=== PATIENT | female | born 1995 | race Hispanic/Latino ===

== ENCOUNTER 2016-06-19 07:34 | Inpatient (IN) | payer MEDICAID ==
[~2016-06-19] VITALS: Ht 160 cm; Wt 81.6 kg
[2016-06-19] MEDS ORDERED: BUPIVACAINE 0.25% PF 10ML EPIDURAL ONE (07:45)
[2016-06-19] MEDS ORDERED: METOCLOPRAMIDE 10 MG/2 ML VIAL IV PUSH PRN (08:20)
[2016-06-19] MEDS ORDERED: FAMOTIDINE 20 MG TAB PO PRN (08:20)
[2016-06-19] MEDS ORDERED: TERBUTALINE 1 MG/ML VIAL SUBQ PRN (08:20)
[2016-06-19] MEDS ORDERED: FAMOTIDINE 20 MG INJ IV PRN (08:20)
[2016-06-19] MEDS ORDERED: CEFAZOLIN (LD/OB) 100 ML IV PRN (08:20)
[2016-06-19] MEDS ORDERED: ACETAMINOPHEN 325 MG TAB PO PRN (08:20)
[2016-06-19] MEDS ORDERED: LIDOCAINE 1% 30 ML PF INFILTRATE ONE (08:20)
[2016-06-19] MEDS ORDERED: PROMETHAZINE 25 MG/ML VIAL IV PRN (08:20)
[2016-06-19] MEDS ORDERED: OXYTOCIN 15 UNITS/250 ML NS 250 ML IV SCH ×2 (08:20→23:10)
[2016-06-19] MEDS ORDERED: ONDANSETRON 4 MG VIAL IV PUSH PRN (08:20)
[2016-06-19] MEDS ORDERED: LIDOCAINE 1% BUFFERED 1 ML SYR INTRADERM PRN (08:20)
[2016-06-19] MEDS ORDERED: ALU/MAG/SIM 30 ML UDC PO PRN (08:20)
[2016-06-19 08:54] VITALS: Ht 160 cm; Wt 81.6 kg
[2016-06-19] MEDS: LACT RINGERS 1,000 ML IV SCH ×2 (09:29→20:28)
[2016-06-19] MEDS ORDERED: ROPIV/FENT 0.2%-2MCG/ML 100 ML EPIDURAL ONE (18:22)
[2016-06-19] MEDS ORDERED: FENTANYL 100 MCG/2 ML AMP ONE (18:22)
[2016-06-19] MEDS ORDERED: LACT RINGERS 500 ML IV ONE (18:50)
[2016-06-19] MEDS ORDERED: ROPIV/FENT 0.2%-2MCG/ML 100 ML EPIDURAL SCH (18:50)
[2016-06-19] MEDS ORDERED: LACT RINGERS 500 ML IV PRN (18:50)
[2016-06-19] MEDS ORDERED: SODIUM CHLORIDE 0.9% 500 ML IV PRN (18:50)
[2016-06-19] MEDS ORDERED: FENTANYL 100 MCG/2 ML AMP EPIDURAL ONE (18:50)
[2016-06-19] MEDS ORDERED: **ONLY ANESTEHSIA MAY ORDER OPIATES WHILE ON EPIDURAL XX SCH (20:00)
[2016-06-19] MEDS: OXYTOCIN 15 UNITS/250 ML NS 250 ML IV SCH ×2 (23:00→23:16)
[2016-06-19] MEDS ORDERED: ASTRINGENT MED PADS 40'S TOPICAL PRN (23:10)
[2016-06-19] MEDS ORDERED: ZOLPIDEM 5 MG TAB PO PRN (23:10)
[2016-06-19] MEDS ORDERED: MEASLES,MUMPS,RUBELLA VAC SUBQ.VACC ONE (23:10)
[2016-06-19] MEDS ORDERED: TDaP 0.5 ML VIAL IM.VACC ONE (23:10)
[2016-06-19] MEDS ORDERED: MAG HYDROX 30 ML UDC PO PRN (23:10)
[2016-06-19] MEDS ORDERED: DERMOPLAST SPRAY TOPICAL PRN (23:10)
[2016-06-19 23:15] VITALS: BP_SYST 105; RESP 18; TEMP 97.6
[2016-06-19 23:30] VITALS: BP_SYST 105; RESP 18
[2016-06-19 23:45] VITALS: BP_SYST 105; RESP 18
[2016-06-20] VITALS (11 sets, daily range): BP systolic 105–120; RESP 16–24; TEMP 97.5–98.2
[2016-06-20] MEDS: Ibuprofen 600 MG TAB PO SCH ×5 (05:50→23:04)
[2016-06-20] MEDS: DOCUSATE SOD 100 MG CAP PO SCH (08:21)
[2016-06-20] MEDS: OXYCODONE/APAP 5/325 TAB PO PRN ×2 (09:20→19:40)
[2016-06-21] MEDS: OXYCODONE/APAP 5/325 TAB PO PRN ×2 (04:20→08:55)
[2016-06-21] MEDS: Ibuprofen 600 MG TAB PO SCH ×2 (05:18→12:09)
[2016-06-21 05:27] VITALS: BP_SYST 98; RESP 16; TEMP 97.7
[2016-06-21] MEDS: DOCUSATE SOD 100 MG CAP PO SCH (08:48)
[2016-06-21 09:21] VITALS: BP_SYST 105; TEMP 98.1
[2016-06-21 09:22] VITALS: RESP 18
[2016-06-21 12:36] VITALS: BP_SYST 105; RESP 18; TEMP 98.1
== END 2016-06-21 13:18 | disposition home or self-care (01) | DRG 775 ==
LOC: LD 07:34 → OB 06-20 04:53
PROVIDERS: ADMIT Obstetrics & Gynecology; ATTEND Obstetrics & Gynecology
PROC: 10E0XZZ Delivery of Products of Conception, External Approach (ICD-10-PCS; principal; 2016-06-19)
PROC: 3E033VJ Introduction of Other Hormone into Peripheral Vein, Percutaneous Approach (ICD-10-PCS; 2016-06-19)
DX: O36.63X0 Maternal care for excessive fetal growth, third trimester, not applicable or unspecified (principal); O69.81X0 Labor and delivery complicated by cord around neck, without compression, not applicable or unspecified; Z3A.39 39 weeks gestation of pregnancy; Z37.0 Single live birth
CPT/HCPCS: 82803; 85014; 85018; 85025